=== PATIENT | male | born 1985 | race Caucasian/White ===

== ENCOUNTER 2016-07-28 12:57 | Emergency (ER) | payer OTHER ==
[~2016-07-28] VITALS: Ht 185.4 cm; Wt 112.0 kg
[2016-07-28 13:54] LABS: HEMATOCRIT 46.1 % (38.0-50.0); MCH 26.7 PG (29.0-34.0); MCHC 32.5 G/DL (30.0-36.0); MCV 82.2 FL (86-99); MEAN PLAT.VOLUME 10.3 uM^3 (9.0-12.4); PLATELET COUNT 386 K/uL (156-360); RBC DIS.WIDTH-CV 14.4 % (11.8-14.6); RBC DIS.WIDTH-SD 42.8 % (39-53); RED BLOOD COUNT 5.61 M/uL (4.00-5.50); WHITE BLOOD COUNT 6.3 K/uL (4.1-10.2)
[2016-07-28 14:02] LABS: CHLORIDE 105 mEq/L (99-109); POTASSIUM 4.4 mEq/L (3.7-5.4); SODIUM 138 mEq/L (136-147)
[2016-07-28 14:03] LABS: GLUCOSE 89 mg/dL (70-99)
[2016-07-28 14:05] LABS: ANION GAP 9 MEQ/L (2-14)
[2016-07-28 14:08] LABS: UREA NITROGEN (BUN) 22 mg/dL (9-23)
[2016-07-28 14:09] LABS: GFR ESTIMATE (CALCULATED) > 59 mL/min/
[2016-07-28 14:15] LABS: TROP-I INTERPRETATION NEGATIVE; TROPONIN-I < 0.01 ng/mL (0.0-0.30)
[2016-07-28] MEDS ORDERED: DEXILANT60 MG PO (15:40)
[2016-07-28] MEDS ORDERED: HYDROCHLOROTH12.5 M3 PO (15:41)
[2016-07-28] MEDS ORDERED: FAMOTIDINE20 MG PO (15:41)
[2016-07-28] MEDS ORDERED: LISINOPRIL10 MG PO (15:42)
[2016-07-28] MEDS ORDERED: LORAZEPAM1 MG PO (15:43)
[2016-07-28 17:51] LABS: TROP-I INTERPRETATION NEGATIVE; TROPONIN-I < 0.01 ng/mL (0.0-0.30)
[2016-07-28 18:34] VITALS: BP 135/87
== END 2016-07-28 18:35 | disposition home or self-care (01) ==
LOC: EME 12:57
PROVIDERS: Nurse Practitioner Family
DX: R07.89 Other chest pain (principal); Z87.891 Personal history of nicotine dependence; I10 Essential (primary) hypertension; K21.9 Gastro-esophageal reflux disease without esophagitis
CPT/HCPCS: 71020; 80048; 84484; 85027; 93005; 99281; 99283